=== PATIENT | female | born 1975 | race Caucasian/White ===

== ENCOUNTER 2016-08-27 10:50 | Emergency (ER) | payer MEDICAID ==
[2016-08-27 11:57] LABS: Basophils % (Auto) 0.8 % (0.0-1.8); Eosinophils % (Auto) 1.7 % (0.0-4.3); Hematocrit 43.6 % (30.3-42.9); Hemoglobin 14.4 gm/dl (10.1-14.3); Mean Corpuscular HGB Conc 33 % (30-34); Mean Corpuscular Hemoglobin 29 pg (28-32); Mean Corpuscular Volume 88 fl (79-97); Platelet Count 324 K/mm3 (140-440); Red Blood Count 4.98 M/mm3 (3.65-5.03); Red Cell Distribution Width 13.9 % (13.2-15.2); White Blood Count 10.7 K/mm3 (4.5-11.0)
[2016-08-27 12:09] LABS: Anion Gap 23 mmol/L; BUN/Creatinine Ratio 13.33; Blood Urea Nitrogen 8 mg/dL (7-17); Calcium 9.1 mg/dL (8.4-10.2); Carbon Dioxide 18 mmol/L (22-30); Chloride 97.2 mmol/L (98-107); Glucose 185 mg/dL (65-100); Potassium 3.6 mmol/L (3.6-5.0); Sodium 135 mmol/L (137-145)
[2016-08-27] MEDS ORDERED: BACTRIM DS PO ONE (17:43)
[2016-08-27] MEDS ORDERED: KEFLEX PO ONE (17:43)
[2016-08-27] MEDS ORDERED: NORCO 7.5/325 PO ONE (17:44)
[2016-08-27] MEDS ORDERED: CATAPRES PO ONE (17:45)
--- NOTE | 2016-08-27 18:02 | Emergency Department Report ---
HPI - General Chief Complaint: Extremity Injury, Upper Time Seen by Provider: 08/27/16 17:24 - HPI HPI: The patient's 40-year-old female presents for evaluation of left forearm pain. The patient reports pain to the dorsal aspect of the distal left forearm, 10/10 in severity, exacerbated with movement of the left wrist or hand, throbbing in quality, radiating proximally up the arm. The patient denies trauma to the left arm or hand, fever, chills, redness, swelling, paresthesias, loss of motor function. ED Past Medical Hx - Past Medical History Previous Medical History?: Yes Hx Hypertension: Yes - Surgical History Past Surgical History?: Yes Hx Appendectomy: Yes Additional Surgical History: Tonsil removed - Medications Home Medications: Home Medications Medication Instructions Recorded Confirmed Last Taken Type Cephalexin [Keflex] 500 mg PO QID #30 capsule 08/27/16 Unknown Rx HYDROcodone/APAP 7.5-325 [[place] 1 each PO Q8HR PRN #15 tablet 08/27/16 Unknown Rx 7.5-325 mg TAB] Sulfamethoxazole/Trimethoprim 1 each PO BID #20 tablet 08/27/16 Unknown Rx [Bactrim DS TAB] ED Review of Systems ROS: Stated complaint: LFT ARM PAIN Other details as noted in HPI Constitutional: denies: fever ENT: denies: throat or neck pain Respiratory: denies: cough, shortness of breath Cardiovascular: denies: chest pain Endocrine: denies unexplained weight loss or gain Gastrointestinal: denies: abdominal pain, nausea Genitourinary: denies: dysuria Musculoskeletal: reports left arm/hand pain denies: leg swelling Skin: denies: rash Neurological: denies: headache Hematological/Lymphatic: denies: easy bleeding or easy bruising Psych: denies sadness or hopelessness Physical Exam - Physical Exam Vital Signs: Vital Signs 08/27/16 11:16 Temperature 98.3 F Pulse Rate 98 H Respiratory 20 Rate Blood Pressure 164/112 O2 Sat by Pulse 98 Oximetry Physical Exam: General: well-nourished, well-developed, no acute distress Head: Normocephalic, atraumatic Eyes: normal sclera ENT: Mucous membranes are pink and moist Neck: trachea midline, neck supple, No neck stiffness, no cervical adenopathy Respiratory: Breath sounds equal bilaterally, no wheezing, rales, or rhonchi Cardio: S1 and S2 present, no murmurs, rubs, gallops, capillary refill is brisk Abdomen: Normoactive bowel sounds, soft abdomen, no tenderness Musc: Inspection of the left forearm, wrist, and hand unremarkable, she is to palpation present, mild redness present overlying the distal forearm, proximal to the wrist, no warmth or fluctuance, no tenderness to the dorsal aspect of the hand, no snuffbox tenderness, no palmar left hand tenderness, redness, swelling, or pain overlying the flexor tendon sheath, no fusiform swelling of the digits of the left hand/no sausage digits, no pain elicited with extension or flexion of the digits at the MCP. Skin: No rash Neuro: no facial drooping, normal speech Psych: Normal affect ED Course Vital Signs 08/27/16 11:16 Temperature 98.3 F Pulse Rate 98 H Respiratory 20 Rate Blood Pressure 164/112 O2 Sat by Pulse 98 Oximetry ED Medical Decision Making - Lab Data Result diagrams: 08/27/16 11:29 08/27/16 11:29 - Medical Decision Making The patient was seen and examined by myself. The patient is placed on a wireless sales consultant and continuous pulse ox. On initial evaluation, the patient was found to be in no distress. Evaluation orders were placed. Lab results revealed normal WBC. X-ray of the left forearm/wrist is negative for fracture, dislocation, periosteal elevation, or findings concerning for osteomyelitis. The patient is given Bactrim and Keflex for treatment of suspected left forearm cellulitis vs. extensor tendon infection. Pain may also be secondary to forearm extensor tendinitis. The patient was reevaluated and reported that their symptoms were markedly improved. The patient is stable for discharge with outpatient follow-up. The patient is given follow-up and return instructions. The patient expressed understanding and agreed with the plan. The patient is discharged in stable condition. Critical care attestation.: If time is entered above; I have spent that time in minutes in the direct care of this critically ill patient, excluding procedure time. ED Disposition Clinical Impression: Cellulitis of forearm, left, Hypertensive urgency Disposition: DISCHARGED TO HOME OR SELFCARE Is pt being admited?: No Does the pt Need Aspirin: No Condition: Stable Instructions: Chronic Hypertension (ED), Cellulitis (ED) Prescriptions: Cephalexin [Keflex] 500 mg PO QID #30 capsule HYDROcodone/APAP 7.5-325 [[place] 7.5-325 mg TAB] 1 each PO Q8HR PRN #15 tablet PRN Reason: Pain Sulfamethoxazole/Trimethoprim [Bactrim DS TAB] 1 each PO BID #20 tablet Referrals: JAMES HUGO MD [Staff Physician] - 3-5 Days Time of Disposition: 18:16
[2016-08-27 20:09] VITALS: BP 143/99
--- NOTE | 2016-08-28 07:52 | XRay Report ---
LEFT WRIST, 3 views: HISTORY: Left wrist pain. Routine views demonstrate the carpal bones to be well mineralized with well preserved bony mineralization and interosseous joint spaces. The carpal and adjacent articular bones have normal contours. The surrounding soft tissues are unremarkable. IMPRESSION: Normal study.
== END 2016-08-27 20:09 | disposition home or self-care (01) ==
LOC: ED 10:50
DX: L03.114 Cellulitis of left upper limb (principal); I16.0 Hypertensive urgency; I10 Essential (primary) hypertension; Z90.49 Acquired absence of other specified parts of digestive tract
CPT/HCPCS: 36415; 80048; 84484; 85025; 93005; 93010

== ENCOUNTER 2016-12-14 21:28 | Emergency (ER) | payer MEDICARE ==
[2016-12-14 23:32] LABS: Basophils % (Auto) 0.6 % (0.0-1.8); Eosinophils % (Auto) 0.4 % (0.0-4.3); Hematocrit 40.3 % (30.3-42.9); Hemoglobin 13.3 gm/dl (10.1-14.3); Mean Corpuscular HGB Conc 33 % (30-34); Mean Corpuscular Hemoglobin 29 pg (28-32); Mean Corpuscular Volume 86 fl (79-97); Platelet Count 328 K/mm3 (140-440); Red Blood Count 4.67 M/mm3 (3.65-5.03); Red Cell Distribution Width 13.3 % (13.2-15.2); White Blood Count 12.9 K/mm3 (4.5-11.0)
[2016-12-14 23:54] LABS: Anion Gap 24 mmol/L; Blood Urea Nitrogen 14 mg/dL (7-17); Calcium 9.5 mg/dL (8.4-10.2); Carbon Dioxide 21 mmol/L (22-30); Glucose 194 mg/dL (65-100); Potassium 3.9 mmol/L (3.6-5.0); Sodium 139 mmol/L (137-145)
[2016-12-14 23:57] LABS: Bilirubin,Urine NEG (Negative); Blood,Urine MOD (Negative); Ketones,Urine TR mg/dL (Negative); Leukocyte Esterase,Urine TR (Negative); Mucus,Urine FEW /HPF; Nitrite,Urine NEG (Negative); Protein,Urine <15 mg/dL mg/dL (Negative); Urobilinogen,Urine < 2.0 mg/dL (<2.0)
--- NOTE | 2016-12-15 01:25 | Cat Scan Report ---
FINAL REPORT PROCEDURE: CT HEAD/BRAIN WO CON TECHNIQUE: Computerized tomography of the head was performed without contrast material. HISTORY: dizziness/chest pain/presyncope COMPARISON: No prior studies are available for comparison. FINDINGS: Skull and scalp: Normal. Paranasal sinuses: Normal. Ventricles and subarachnoid spaces: Normal. Cerebrum: No evidence of hemorrhage, acute infarction or mass . Cerebellum and brainstem: No evidence of hemorrhage, acute infarction or mass. Vasculature: Normal. Comments: None. IMPRESSION: There is no evidence of an acute intracranial process.
--- NOTE | 2016-12-15 07:43 | Emergency Department Report ---
HPI - General Chief Complaint: Chest Pain - HPI HPI: patient states yesterday while working she stood up fast and felt dizzy, weak, chest started to hurt, mid chest, 4/10, aching without radiation. patient denies any n/v, sob, or diaphoresis. ED Past Medical Hx - Past Medical History Hx Hypertension: Yes - Surgical History Hx Appendectomy: Yes Additional Surgical History: Tonsil removed - Family History Family history: hypertension - Social History Smoking Status: Never Smoker Substance Use Type: None - Medications Home Medications: Home Medications Medication Instructions Recorded Confirmed Last Taken Type Cephalexin [Keflex] 500 mg PO QID #30 capsule 08/27/16 Unknown Rx Fluconazole [Diflucan TAB] 150 mg PO ONCE #1 tablet 08/27/16 Unknown Rx HYDROcodone/APAP 7.5-325 [[place] 1 each PO Q8HR PRN #15 tablet 08/27/16 Unknown Rx 7.5-325 mg TAB] Sulfamethoxazole/Trimethoprim 1 each PO BID #20 tablet 08/27/16 Unknown Rx [Bactrim DS TAB] Ciprofloxacin HCl [Ciprofloxacin 500 mg PO Q12HR #14 tab 12/15/16 Unknown Rx TAB] ED Review of Systems ROS: Stated complaint: NINOSKA/BP CHECK Other details as noted in HPI Comment: All other systems reviewed and negative Constitutional: no symptoms reported Cardiovascular: chest pain Gastrointestinal: nausea Neurological: numbness Psychiatric: anxiety Physical Exam - Physical Exam Vital Signs: Vital Signs 12/14/16 12/15/16 21:39 00:55 Temperature 98 F 98.5 F Pulse Rate 102 H 84 Respiratory 18 20 Rate Blood Pressure 159/109 159/103 O2 Sat by Pulse 98 100 Oximetry Physical Exam: gen: alert and oriented x3, Tearful heent: perrla, eomi cv: rrr, nl s1, s2 lungs: cta bila abd: s,nt,nd, pos bs ext: no edema gu: pt refused neuro: no deficits psych: normal mood, and affect skin: normal turgor ED Course Vital Signs 12/14/16 12/15/16 21:39 00:55 Temperature 98 F 98.5 F Pulse Rate 102 H 84 Respiratory 18 20 Rate Blood Pressure 159/109 159/103 O2 Sat by Pulse 98 100 Oximetry ED Medical Decision Making - Lab Data Result diagrams: 12/14/16 21:57 12/14/16 21:57 Critical care attestation.: If time is entered above; I have spent that time in minutes in the direct care of this critically ill patient, excluding procedure time. ED Disposition Clinical Impression: Hypertension, Chest pain, UTI (urinary tract infection) Disposition: TO HOME OR SELFCARE Is pt being admited?: No Does the pt Need Aspirin: No Condition: Stable Instructions: Hypertension (ED), Chest Pain (ED) Prescriptions: Ciprofloxacin HCl [Ciprofloxacin TAB] 500 mg PO Q12HR #14 tab Referrals: LEIDA MICHELLE DO [Primary Care Provider] - 3-5 Days LEVON KRUGER MD [Staff Physician] - 3-5 Days Forms: Work/School Release Form(ED)
[2016-12-15 07:51] VITALS: BP 132/86
== END 2016-12-15 07:54 | disposition home or self-care (01) ==
LOC: ED 21:28
DX: I10 Essential (primary) hypertension (principal); R07.9 Chest pain, unspecified; N39.0 Urinary tract infection, site not specified
CPT/HCPCS: 36415; 70450; 80048; 81001; 81025; 84484; 85025; 93005; 93010

== ENCOUNTER 2017-12-15 14:02 | Emergency (ER) | payer MEDICARE ==
[2017-12-15 14:14] VITALS: BP 190/85
[2017-12-15] MEDS ORDERED: ASPIRIN PO ONE (14:14)
[2017-12-15 15:55] LABS: BUN/Creatinine Ratio 10; Blood Urea Nitrogen 6 mg/dL (7-17); Calcium 9.1 mg/dL (8.4-10.2); Hemolysis Index 2
[2017-12-15 15:59] LABS: Basophils # (Auto) 0.1 K/mm3 (0.0-0.1); Basophils % (Auto) 0.8 % (0.0-1.8); Eosinophils # (Auto) 0.1 K/mm3 (0.0-0.4); Eosinophils % (Auto) 0.8 % (0.0-4.3); Hematocrit 41.6 % (30.3-42.9); Hemoglobin 13.8 gm/dl (10.1-14.3); Lymphocytes # (Auto) 2.8 K/mm3 (1.2-5.4); Lymphocytes % (Auto) 27.2 % (13.4-35.0); Mean Corpuscular HGB Conc 33 % (30-34); Mean Corpuscular Hemoglobin 29 pg (28-32); Mean Corpuscular Volume 88 fl (79-97); Monocytes # (Auto) 0.4 K/mm3 (0.0-0.8); Platelet Count 402 K/mm3 (140-440); Red Blood Count 4.75 M/mm3 (3.65-5.03); Red Cell Distribution Width 13.9 % (13.2-15.2)
== END 2017-12-15 16:25 | disposition left against medical advice (07) ==
LOC: ED 14:02
DX: M25.512 Pain in left shoulder (principal); Z53.21 Procedure and treatment not carried out due to patient leaving prior to being seen by health care provider
CPT/HCPCS: 36415; 80048; 84484; 85025; 93005; 93010

== ENCOUNTER 2021-10-25 14:34 | Emergency (ER) | payer MEDICARE ==
[2021-10-25 14:46] VITALS: BP 159/91
== END 2021-10-25 18:15 | disposition left against medical advice (07) ==
LOC: ED 14:34
DX: E11.65 Type 2 diabetes mellitus with hyperglycemia (principal); Z53.21 Procedure and treatment not carried out due to patient leaving prior to being seen by health care provider
CPT/HCPCS: 82962